=== PATIENT | female | born 1980 ===

== ENCOUNTER 2019-06-24 15:29 | Emergency (ER) | payer OTHER ==
[2019-06-24] MEDS ORDERED: NORCO 5/325 PO STA (17:50)
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
[2019-06-24 18:47] LABS: HCG Qualitative,Urine Negative (Negative)
--- NOTE | 2019-06-24 20:28 | XRay Report ---
LEFT HIP AND PELVIS 3 VIEWS INDICATION: left hip pain. COMPARISON: No relevant prior imaging study available. FINDINGS: No fracture or dislocation is seen. No significant degenerative changes. Soft tissues are unremarkabl e. IMPRESSION: 1. No acute findings. CERVICAL SPINE 3 VIEWS INDICATION: Cervical neck pain. COMPARISON: No relevant prior imaging study available. FINDINGS: No acute fracture or subluxation is seen. No significant degenerative changes. No prevertebral soft t issue swelling. IMPRESSION: 1. No acute findings. LEFT HUMERUS 2 VIEWS INDICATION: Left arm pain. COMPARISON: No relevant prior imaging study available. FINDINGS: No acute fracture or dislocation is seen. There is mild sclerosis along the lateral cortex of the pro ximal left humeral metadiaphysis, this has a benign appearance. No soft tissue swelling or foreign srinivas dies. There are no significant degenerative changes. No radiographic evidence of joint effusion. IMPRESSION: 1. No acute findings. CHEST PA AND LATERAL VIEWS INDICATION: Chest pain. COMPARISON: None. FINDINGS: Support devices: None. Heart: Within normal limits. Lungs/Pleura: No acute pulmonary or pleural findings. IMPRESSION: 1. No significant abnormality. Signer Name: Fabien Uriostegui MD Signed: 06/24/2019 8:24 PM Workstation Name: [email or web address]
[2019-06-24 20:56] VITALS: BP 132/77
== END 2019-06-24 20:59 | disposition home or self-care (01) ==
LOC: ED 15:29
DX: S39.012A Strain of muscle, fascia and tendon of lower back, initial encounter (principal); S16.1XXA Strain of muscle, fascia and tendon at neck level, initial encounter; M79.602 Pain in left arm; Z79.899 Other long term (current) drug therapy; V89.2XXA Person injured in unspecified motor-vehicle accident, traffic, initial encounter; Y93.89 Activity, other specified; Y92.488 Other paved roadways as the place of occurrence of the external cause; Y99.8 Other external cause status
CPT/HCPCS: 71046; 72040; 72100; 81025; 99284